=== PATIENT | male | born 1980 | race Caucasian/White ===

== ENCOUNTER → 2016-12-08 | Outpatient (CLI) | payer BC ==
--- NOTE | ~2016-12-08 | PUL ---
PATIENT'S NAME: MARIEL LAM [facility] AGE: 36 Y [address] ROOM: [place] [id number] LOCATION: [facility] ADMIT DATE: 12/08/2016 Pulmonary DISCHARGE DATE: FAMILY PHYSICIAN: Ambrosio Weiss MD ATTENDING PHYSICIAN: Ambrosio Weiss NAME OF PROCEDURE: Sleep study DATE OF PROCEDURE: 12/08/16 TECH: HARSHA Edward TEST #: [facility] [place] [id number] MEDICAL HISTORY: The patient is a 36-year-old gentleman with daytime sleepiness. SLEEP STAGE SUMMARY: The patient was studied for a total of 521 minutes of which he slept 470 minutes. He fell asleep in 10 minutes and slept for 90% of the night. Sleep architecture revealed a decline in slow wave and REM sleep. RESPIRATORY SUMMARY: Oxygen saturations ranged from 85-94%. There were 97 apneas and 32 hypopneas for an apnea/hypopnea index moderately elevated at 16.5 events per hour. The majority of the events occurred too late in the study to allow for initiation of CPAP. EKG SUMMARY: No dysrhythmias were noted. LIMB MOVEMENT SUMMARY: No clinically relevant periodic limb movements were noted. SUMMARY: Moderate obstructive sleep apnea. PLAN: Would consider a repeat study for initiation and titration of CPAP. Patient will receive results from the ordering provider. RAGHU HOUSER MD [facility]/ /[id number] dtt: 12/20/16 1017 , Raghu Houser dtd: 12/10/16 1501
== END | disposition disaster alternative care site (69) ==
LOC: GSLP 20:33
DX: G47.10 Hypersomnia, unspecified (principal); G47.33 Obstructive sleep apnea (adult) (pediatric)